=== PATIENT | female | born 1990 ===

== ENCOUNTER 2016-11-28 13:54 | Inpatient (IN) | payer MEDICAID, SELFPAY ==
[2016-11-28 14:55] VITALS: BMI 32.1
[2016-11-28] MEDS ORDERED: Lactated Ringer's 1,000 ML IV SCH (15:00)
[2016-11-28 15:29] LABS: BASO % 0.3 % (0.0-2.0); EOS % 0.4 % (0.0-4.0); HEMATOCRIT 38.2 % (34.0-47.0); LYMPH # 1.2 K/uL (1.0-4.3); LYMPH % 16.2 % (20.0-40.0); MEAN CELL VOLUME 83.9 fl (81.0-99.0); MEAN CORPUSCULAR HGB CONC 32.2 g/dL (33.0-37.0); MONO # 0.5 K/uL (0.0-0.8); MONO % 6.3 % (0.0-10.0); NEUT # 5.5 K/uL (1.8-7.0); NEUT % 76.8 % (50.0-75.0); NRBC % 0.2 % (0.0-0.0); RED CELL DISTRIBUTION WIDTH 26.2 % (11.5-14.5); WHITE BLOOD COUNT 7.1 K/uL (4.8-10.8)
[2016-11-28 18:05] LABS: RBC URINE 4 /hpf (0-3); URINE BACTERIA OCC (<OCC); URINE BILIRUBIN NEGATIVE (NEGATIVE); URINE BLOOD NEGATIVE (NEGATIVE); URINE COLOR YELLOW (YELLOW); URINE GLUCOSE (UA) NEG (Normal); URINE KETONE 80 mg/dL (NEGATIVE); URINE LEUKOCYTE ESTERASE TRACE Leu/uL (Negative); URINE PROTEIN NEGATIVE (NEGATIVE); URINE UROBILINOGEN 0.2-1.0 mg/dL (0.2-1.0); WBC URINE 3 /hpf (0-5)
[2016-11-28] MEDS ORDERED: Morphine 1 mg/ml preservative-free Inj(Duramorph) ONE (20:44)
[2016-11-28] MEDS ORDERED: Phenylephrine 10 mg/ml Inj ONE (20:44)
[2016-11-28] MEDS ORDERED: ePHEDrine 50 mg/ml Inj ONE (20:44)
[2016-11-28] MEDS ORDERED: ceFAZolin 1 GM in Sodium Chloride 0.9% 100 ML IVPB ONE (21:00)
[2016-11-28] MEDS ORDERED: DiphenhydrAMINE 50 mg/ml Inj IVP PRN (22:16)
[2016-11-28] MEDS ORDERED: Oxycodone/Acetaminophen 5/325 mg Tab PO PRN ×2 (22:28)
[2016-11-28 22:47] VITALS: BP 131/66; PULSE 76; RESP 16; TEMP 98.7; O2SAT 100
[2016-11-29] MEDS ORDERED: Lactated Ringer's 1,000 ML IV SCH ×2 (00:40→01:47)
[2016-11-29] MEDS ORDERED: Oxycodone/Acetaminophen 5/325 mg Tab PO PRN (01:47)
[2016-11-29] MEDS ORDERED: DiphenhydrAMINE 50 mg/ml Inj IVP PRN (01:47)
[2016-11-29 07:48] LABS: BASO % 0.2 % (0.0-2.0); EOS % 0.1 % (0.0-4.0); HEMATOCRIT 33.8 % (34.0-47.0); LYMPH # 1.2 K/uL (1.0-4.3); LYMPH % 13.5 % (20.0-40.0); MEAN CELL VOLUME 83.6 fl (81.0-99.0); MEAN CORPUSCULAR HEMOGLOBIN 27.3 pg (27.0-31.0); MEAN CORPUSCULAR HGB CONC 32.7 g/dL (33.0-37.0); MEAN PLATELET VOLUME 10.1 fl (7.2-11.7); MONO # 0.7 K/uL (0.0-0.8); MONO % 7.4 % (0.0-10.0); NEUT % 78.8 % (50.0-75.0); NRBC % 0.1 % (0.0-0.0); RED CELL DISTRIBUTION WIDTH 26.2 % (11.5-14.5); WHITE BLOOD COUNT 8.8 K/uL (4.8-10.8)
[2016-11-29] MEDS: Oxycodone/Acetaminophen 5/325 mg Tab PO PRN (09:23)
--- NOTE | 2016-11-29 09:48 | OBADHP ---
Datetime: 11/29/2016 09:38 Admit Comment, IP Provider: 26-year-old 002 at 38 weeks gestational age transferred from [facility] due to uterine contractions. Patient reports not feeling any uterine contractions. Patient denies any leakage of fluids or vaginal bleeding. Patient reports good movement. Patient was observed at the OB ED for approximately 4-5 hours. At the end of 5 hours, patient started having acute vagina l bleeding. Due to vaginal bleeding and prior 2, decision made for repeat sectio n. Discussed with patient risks, benefits, alternatives of surgery. Patient consented for repeat C-se ction. Discussed with patient option of bilateral tubal ligation. Patient declining BTL at this time. Discussed with patient the possible risks of surgical complications with future section del iveries. All patient questions answered. Past medical history none Past surgical history 2 Medications vitamins No known drug allergies Obstetrical history full-term 2 Social history no tobacco, no drugs, no alcohol Physical exam: Refer to physical exam findings Assessment: 26-year-old 002 at 30 weeks gestational age with contractions and vaginal bleeding, likely e joão labor. Plan: As above. Patient transferred to operative room for section delivery. Pelvic Type - PN: Adequate Extremities - PN: Normal Abdomen - PN: Normal Back - PN: Normal Breast - PN: Normal Lungs - PN: Normal Heart - PN: Normal Thyroid - PN: Normal Neurologic - PN: Normal HEENT - PN: Normal General - PN: Normal FHR - Baseline A Provider: 140s Membranes, Provider: Intact Pool Provider: Negative IP Hx Assessment: The History has been Reviewed and is Current Vital Signs Provider: Reviewed; Within Normal Limits IP Chief Complaint: Uterine contractions NICHD Variability Prov Fetus A: Moderate 6-25bpm NICHD Accel Fetus A IP Provider: [id number] FHR Category Provider Fetus A: Category I NICHD Decel Fetus A IP Provider: None Dilatation, Provider: 1 Effacement, Provider: 50 Station, Provider: -3 Genitourinary Exam: Normal DTRs - PN: Normal EGA AdmitDate IP: 38.1 IP Adm Impression: Term, intrauterine ; Active labor IP Admit Plan: Observation/Evaluation; Discharge home
--- NOTE | 2016-11-29 10:10 | OBDS ---
DELIVERY PERSONNEL Delivery Doctor: Hanane Shankar MD Scrub Nurse: Sameera Yoon Sole Molder: Alexa Osborn RN/ Juana Anesthesiologist: Maggie Bill MD Resident: Dr. Garland OBR MATERNAL INFORMATION Delivery Anesthesia: Spinal Medications in Delivery: 1 gm Ancef, pitocin, LR Estimated Blood Loss (ml): 800 Placenta Cultured: Yes Maternal Complications: Other Other Maternal Complications: onset of labor, bleeding previos c/s x 2 RN Comments: FHR baseline of 150 noted in OR prior to c/s Provider Comments: Repeat low flap transverse or infection. Upon entry into the uterus, blood and cl ots observed. Placenta found to be approximately one third already removed from the uterine wall. Patient delivered viable male with Apgars of 9 and 9 at one and 5 minutes respectively. Nor mal uterus, normal tubes and ovaries bilaterally. Evidence of placental abruption. Estimated blood loss 800 mL Fluids 1200 mL lactated Ringer's Urine output 200 mL of clear urine at the end of procedure Complications none LABOR SUMMARY EDC: 12/12/2016 00:00 No. Babies in Womb: 1 Attempted: No Labor Anesthesia: None LABOR INFORMATION Reason for Induction: Not Applicable Onset of Labor: 11/28/2016 21:00 Oxytocin: N/A Group B Beta Strep: Negative Steroids Given: None Reason Steroids Not Administered: Not Applicable MEMBRANES Membranes Rupture Method: Artificial Rupture of Membranes: 11/28/2016 21:33 Length of Rupture (hrs): 0.00 Amniotic Fluid Color: Clear Amniotic Fluid Amount: Small Amniotic Fluid Odor: Normal STAGES OF LABOR Stage 3 hrs: 0 Stage 3 min: 1 Total Time in Labor hrs: 0 Total Time in Labor min: 34 CSECTION DELIVERY Primary Indication: Repeat Elective Secondary Indication: onset of Labor previous c/s x 2 CSection Urgency: Elective CSection Incidence: Repeat Labor: Labor Elective: Elective CSection Incision: Lower Uterine Transverse BABY A INFORMATION Infant Delivery Date/Time: 11/28/2016 21:33 Method of Delivery: Born in Route : No : N/A Forceps: N/A Vacuum Extraction: N/A Shoulder Dystocia : No SHOULDER DYSTOCIA BABY A Delivery Date/Time: 11/28/2016 21:33 PRESENTATION/POSITION BABY A Presentation: Cephalic Cephalic Presentation: Vertex Breech Presentation: N/A PLACENTA INFORMATION BABY A Placenta Delivery Time : 11/28/2016 21:34 Placenta Method of Delivery: Manual Removal Placenta Status: Delivered SCORES BABY A Heart Rate 1 min: >100 bpm Resp Effort 1 min: Good Cry Reflex Irritability 1 min: Cough or Sneeze or Pulls Away Muscle Tone 1 min: Active Motion Color 1 min: Body [place], Extremities Blue Resuscitation Effort 1 min: N/A SCORE 1 MIN: 9 Heart Rate 5 min: >100 bpm Resp Effort 5 min: Good Cry Reflex Irritability 5 min: Cough or Sneeze or Pulls Away Muscle Tone 5 min: Active Motion Color 5 min: Body [place], Extremities Blue Resuscitation Effort 5 min: N/A SCORE 5 MIN: 9 INFORMATION BABY A Gestational Age at Delivery: 38.0 Gestational Status: Term Outcome : Liveborn Infant Condition : Stable Sex: Female IDENTIFICATION/MEDS BABY A ID Band Number: [id number] ID Band Location: Left Leg; Left Arm WEIGHT/LENGTH BABY A Infant Birthweight (gms): 3410 Infant Weight (lb): 7 Infant Weight (oz): 8 CORD INFORMATION BABY A No. Cord Vessels: 3 Nuchal Cord : N/A Nuchal Cord Other: N/A True Knot: N/A Cord pH Baby Arterial: taken in OR and sent to lab Cord pH Baby Venous: N/A Cord Blood Taken: Yes Banking/Donate Info: N/A Infant Suction: Mouth; Nose ASSESSMENT BABY A Complications: None Physical Findings at Delivery: Within Normal Limits Physical Findings Other: and mother performed 10 minutes of skin to skin in OR during post op . Post skin to skin transferred to nursery by Radha Infant Respirations: Appears Normal Membership Coordinator/ALS Called : No Care By: Nasim Gallagher Transferred To: [facility]
--- NOTE | 2016-11-29 12:09 | OP ---
PROCEDURE DATE: 11/28/2016 PREOPERATIVE DIAGNOSIS: A 26-year-old G3-P2-0-0-2 at 38 weeks' gestational age with uterine contract ions and vaginal bleeding, likely the early labor. POSTOPERATIVE DIAGNOSIS: A 26-year-old G3-P2-0-0-2 at 38 weeks' gestational age with uterine contrac tions and vaginal bleeding, likely the early labor plus placental abruption. OPERATION PERFORMED: Repeat low flap transverse section via Pfannenstiel incision. OPERATIVE FINDINGS: Viable male with Apgars of 9 and 9 at 1 and 5 minutes respectively, kathia l uterus, normal tubes and ovaries bilaterally. Evidence of placental abruption. Upon entry into th e uterus, blood and clots were found in the uterus. ESTIMATED BLOOD LOSS: 800 mL. FLUIDS: 1200 mL lactated ringers. URINE OUTPUT: 200 mL of clear urine at the end of procedure. COMPLICATIONS: None SURGEON: Pacheco Shankar MD ELECTRICIAN SOUND: Dr. Jeanie Orantes. Dr. Orantes was present from the beginning of the procedure to the end of procedure. Dr. Orantes was integral in exposing the surgical field, controlling intraoperative bleeding and manual delivery of the infant. ANESTHESIOLOGIST: Daniel Bill MD. ANESTHESIA: Spinal. PROCEDURE: The patient was taken to the operating room where anesthesia was found to be adequate. T he patient was prepped and draped in normal sterile fashion in the dorsosupine position with a leftwa rd tilt. A Pfannenstiel skin incision was made with scalpel. This was carried down through to the u nderlying layer of fascia with scalpel. Midline defect was made in the fascial layer with the scalpe l. The fascial incision was then extended sharply bilaterally with curved Tracey scissors. The fascia l layer was from the underlying rectus muscles, both bluntly and sharply with curved Tracey s cissors. The rectus muscles were at the midline. The peritoneum was then identified, tent ed up with Shruthi clamps x 2, entered sharply with Metzenbaum scissors. This peritoneal incision was then extended superiorly and inferiorly with good visualization of the urinary bladder. Bladder blad e was inserted into the abdomen. The vesicouterine peritoneum was then identified, tented up with Ke nathany clamps x 2, entered sharply with Metzenbaum scissors. This peritoneal incision was then extended bilaterally with Metzenbaum scissors. The bladder flap was created digitally. The Enterprise retracto r was placed over the urinary bladder. The uterus was incised with a scalpel. The uterine incision was extended bilaterally bluntly. The jeremias hernandez's head was delivered atraumatically. Nose and mouth were suctioned with bulb suction. The cor d was clamped and cut. The was handed off to waiting pediatricians. Cord gases were collected. Cord blood was collected. The placenta was removed manually. Upon entry into the uterus, blood clots were found in the uterus. The placenta was also found to be approximately 1/3 already detached from the uterine wall. The uterus was cleared of all clots and debris. The uterine incision was repaired with 0 Vicryl in a running, locked fashion. The second layer of the same suture was used to imbricate the first and to obtain excellent hemostasis. Reinspection of the uterine incision proved excellent hemostasis. The abdomen and pelvis were irriga martha with copious amounts of warm normal saline. Reinspection of the uterine incision proved excellen t hemostasis. All instruments were removed from the patient. The peritoneal layer was closed with a running stitch of 2-0 chromic. The rectus muscles were reappr oximated with a running stitch of 2-0 chromic. The fascial layer was closed with a running stitch of 0 Vicryl. The skin was closed with zackary. The patient tolerated the procedure well. All sponge, lap, needle, and needle counts were correct x 2. The patient was given 1 gram of Ancef just prior to the beginning of the procedure. There were n o complications. The patient was taken to recovery room awake and in stable condition. Pacheco Shankar MD cc: [id number] TT: 11/29/2016 12:08:13 altagracia
[2016-11-30] MEDS: Oxycodone/Acetaminophen 5/325 mg Tab PO PRN (07:26)
[2016-11-30] MEDS: Multivitamin With Minerals Tab PO SCH (13:50)
[2016-12-01] MEDS: Oxycodone/Acetaminophen 5/325 mg Tab PO PRN ×2 (01:08→05:50)
[2016-12-01] MEDS: Multivitamin With Minerals Tab PO SCH (11:00)
--- NOTE | 2016-12-01 21:54 | OBDCSUM ---
Datetime: 12/01/2016 07:59 Follow up at, Provider: [facility] Disch Instr Activity: Normal activity; May be up to bathroom; May be up for meals; May Shower Discharge Time: 12/01/2016 11:00 Disch Activity Restrictions: No lifting; No sexual activity; Nothing in vagina - [place] [employer], tampon s, douche Discharge Comment, Provider: POD#3 s/p repeat c/s. Patient doing well postop Motrin 600 mg q6 PRN pain 1-3 Percocet 3/325mg q 4 PRN Pain 4-7 Colace 100mg PRN constipation The patient was seen with the resident and I agree with the note, the patient is ready for dischar ge
--- NOTE | 2016-12-01 21:54 | OBPPN ---
Datetime: 12/01/2016 07:52 PP Pain Prov: Within normal limits PP Nausea Prov: Denies PP Flatus Prov: Yes PP BM Prov: Yes PP Heart Prov: Normal PP Lungs Prov: Normal PP Abdomen/Uterus Prov: Normal PP Lochia Prov: Normal PP Extremities Prov: Normal PP C/S Incision Prov: Normal PP Progress Prov: Normal PP Comments Phys Exam Prov: incision clean and dry, zackary in place. locha < menses fundus firm PP Impression Prov: Normal progression PP Plan Prov: Discharge PP Progress Note Prov: POD #3 s/p repeat c/s S: Patient doing well this morning. Eating well without complaints of nausea or vomiting, +flatus, +bowel movement. She has been OOB without difficulty. Pain is well controlled. Lochia now less than menses. O: as above A/P: 26 year old s/p repeat . Normal post progression. Pain control: Motrin/Percocet Colace for constipation PRN Encouraged OOB. Encouraged continued , may supplement with bottle feeds. Discharge this AM. Robbie Singleton PGY1 patient was seen with the resident and I agree with the note patient scheduled for discharge today Motrin as needed Percocet and Colace IP PP Procedures: None Vital Signs Provider PP: Reviewed Datetime: 11/30/2016 06:41 PP Breasts Prov: Normal PP Vulva/Perineum Prov: Normal PP CVA Tenderness Prov: Normal
== END 2016-12-01 12:30 | disposition home or self-care (01) | DRG 371 ==
LOC: H.EROB2 13:54 → H.L&D 20:50 → H.OB/GYN 11-29 01:30
PROVIDERS: ADMIT Obstetrics & Gynecology; ATTEND Obstetrics & Gynecology
PROC: 10D00Z1 Extraction of Products of Conception, Low, Open Approach (ICD-10-PCS; principal; 2016-11-28)
PROC: 4A0HXCZ Measurement of Products of Conception, Cardiac Rate, External Approach (ICD-10-PCS; 2016-11-28)
DX: O34.211 Maternal care for low transverse scar from previous cesarean delivery (principal); O45.93 Premature separation of placenta, unspecified, third trimester; K59.00 Constipation, unspecified; Z3A.38 38 weeks gestation of pregnancy; Z37.0 Single live birth